=== PATIENT | male | born 1990 | race Caucasian/White ===

== ENCOUNTER 2024-04-04 19:05 | Emergency (ER) | payer BC, SELFPAY ==
--- NOTE | ~2024-04-04 | XR_ITS ---
XR chest 2V Ordering provider: Javier Bravo MD History: 33 years Male with . chest pain . Comparison: None. FINDINGS: MEDIASTINUM: The cardiac silhouette is not enlarged. LUNGS: No infiltrates, effusions or pneumothorax. OTHER: No free air under the diaphragm. IMPRESSION: No acute cardiopulmonary pathology. Nodule Reviewed, dictated and finalized at location A. ZINE KEEPER
--- NOTE | 2024-04-04 19:06 | ECG_ITS ---
Test Date: 2024-04-04 19:20:39 Measurements Intervals Gepp Rate: 60 P: -2 NV: 156 QRS: -20 QRSD: 105 T: -9 QT: 388 QTc: 390 Interpretive Statements SINUS RHYTHM No previous ECG available for comparison Electronically Signed On 04-05-2024 22:54:58 MATE FIRST by Cosmo Crump M.D.
[2024-04-04 19:21] VITALS: BP 101/65; PULSE 72; RESP 15; TEMP 36.6; O2SAT 100
[2024-04-04 19:33] LABS: Basophils Percent Auto 0.3 % (0.2-1.2); Eosinophils Absolute Auto 0.2 K/mm3 (0-0.3); Eosinophils Percent Auto 2.3 % (0-4.4); Hematocrit 46.8 % (42.0-52.0); Hemoglobin 16.3 g/dL (14.0-18.0); Immature Granulocyte Absolute 0.03 K/mm3 (0.00-0.031); Immature Granulocyte Percent A 0.4 % (0-0.5); Lymphocytes Absolute Auto 1.58 K/mm3 (0.9-3.2); Lymphocytes Percent Auto 22.3 % (18.3-44.2); Mean Corpuscular HGB Conc 34.8 g/dl (32-36); Mean Corpuscular Hemoglobin 30.3 pg (26-34); Mean Platelet Volume 9.5 fl (7.4-10.4); Monocytes Absolute Auto 0.6 K/mm3 (0.1-0.6); Monocytes Percent Auto 8.6 % (2.6-8.5); Neutrophils Absolute Auto 4.7 K/mm3 (1.3-6.7); Neutrophils Percent Auto 66.1 % (45.5-73.1); Platelet Count Result 221 k/mm3 (150-375); Red Blood Count 5.38 M/mm3 (4.6-6.20); Red Cell Distribution Width 12.5 % (11.5-14.5); White Blood Count 7.1 K/mm3 (4.5-10.0)
[2024-04-04 19:42] LABS: Alanine Aminotransferase 22 U/L (6-50); Alkaline Phosphatase 72 U/L (38-126); Anion Gap 6 mmol/L (4-12); Aspartate Amino Transferase 26 U/L (17-59); Bilirubin,Total 0.8 mg/dL (0.2-1.3); Blood Urea Nitrogen 19 mg/dL (9-20); Calcium 9.2 mg/dL (8.4-10.2); Carbon Dioxide 27 mmol/L (22-30); Chloride 106 mmol/L (98-107); Estimated CRCL calculation 98 ml/min; Estimated Glomerular Filt Rate > 60; Glucose 79 mg/dL (65-110); Lipase 148 U/L (23-300); Sodium 139 mmol/L (137-145)
[2024-04-04 19:53] LABS: Troponin I < 0.012 ng/mL (0.000-0.034)
[2024-04-04 20:02] LABS: Prothrombin Time 13.6 Seconds (11.1-14.7)
[2024-04-04 20:03] LABS: Partial Thromboplastin Time 28.2 Seconds (22.3-36.8)
[2024-04-04 20:09] LABS: Influenza A QL RT-PCR Negative (Negative); Influenza B QL RT-PCR Negative (Negative); RSV RNA, RT-PCR Negative (Negative); SARS-CoV-2 RNA PCR Negative (Negative)
--- NOTE | 2024-04-05 00:39 | PC.NURSE ---
pt seen ambulatory with steady gait to exit. no distress noted.
--- OUTSIDE RECORDS SUMMARY | 2024-04-12 02:19 | XMS_ITS | Continuity of Care Document ---
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 It does not include entries that were removed or entered in error. 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, 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, 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) Active Condition [facility] Syncope and collapse Active Condition [facility] Outpatient Physician Consultation Active Condition [facility] diarrhea Active Condition [facility] hemorrhoids Active Condition [facility] sinusitis Active Condition [facility] visit for: administrative purpose Inactive Condition [facility] other specified viral disease Inactive Condition [facility] visit for: follow-up exam Active Condition [facility] Medications Combined list of outpatient medications from Department of Defense and Veterans Affairs facilities.Medications provided include 1) outpatient medications from the last 15 months, and 2) patient-reported medications. Medication Details Route Status Patient Instructions Prescription Expires Prescription Number Last Dispense Date Ordering Provider Order Date Order Qty Source FLUARIX QUAD [id number] (influenza virus vaccine quadrival 4489-2443(6 mos and up)/PF), 60MCG/.5ML, FLUARIX QUAD 1 (influen za virus vaccine quadriva l 2019-(6 mos and up)/PF), 60MCG/.5 ML, Start Date: 05/12/20 Status: Ordered Ordered No Facilit y Access levothyroxi ne (Synthroid) 75 mcg tablet See dose instruct ions in comments , # 90 EA, 2 total refill(s ), Acute Complet ed 03/31/2023 90.0 [facility] y Allergies, Adverse Reactions, Alerts Combined list of allergies from Department of Defense and Veterans Affairs facilities. It does not include entries that were removed or entered in error. Substance Category Reaction Severity Reaction type Status Date Reported Comments Source No Known Allergies Drug allergy (disorder) active 07/31/2008 [place] [address] Immunizations Combined list of available immunizations from the Department of Defense and Veterans Affairs facilities. 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 Status Comments Source influenza virus vaccine, unspecified 2022 ELIDIA 88 comple t ed influenza virus vaccine, unspecifi ed 01/17/23 Recorded No Facilit y Access influenza, injectable, quadrivalent- pf 2021 ELIDIA [id number] 150 comple t ed Result Comment: Route: Unknown Manufactu rer: OTH (SKB) No Facilit y Access influenza virus vaccine, inactivated 2021 ELIDIA [id number] comple t ed Result Comment: Route: Unknown Manufactu rer: OTH (SEQ) No Facilit y Access COVID Vaccine Pfizer 2020 [id number] PFIZER complet ed COVID Vaccine Pfizer 09/18/20 Given Ambulat ory Pharmac y COVID Vaccine Pfizer 2020 [id number] PFIZER complet ed COVID Vaccine Pfizer 08/27/20 Given Ambulat ory Pharmac y influenza, seasonal, injectable 2020 [id number] 141 GlaxoSmithKli ne complet ed influenza , seasonal, injectabl e 05/11/20 Given Ambulat ory Pharmac y influenza, seasonal, injectable 2020 [id number] 141 GlaxoSmithKli ne complet ed influenza , seasonal, injectabl e 05/11/20 Given Ambulat ory Pharmac y Influenza, seasonal, injectable 1 2020 [id number] Influenza , seasonal, injectabl e DoD influenza, injectable, quadrivalent- pf 2020 TRS 150 GlaxoSmithKli ne complet ed influenza , injectabl e, quadrival ent-pf 05/10/20 Given Ambulat ory Pharmac y influenza, seasonal, injectable 2020 [id number] 141 GlaxoSmithKli ne complet ed influenza , seasonal, injectabl e 05/10/20 Given Ambulat ory Pharmac y influenza, injectable, quadrivalent- pf 2020 TRS 150 GlaxoSmithKli ne complet ed influenza , injectabl e, quadrival ent-pf 05/10/20 Given Ambulat ory Pharmac y influenza, seasonal, injectable 2020 [id number] 141 GlaxoSmithKli ne complet ed influenza , seasonal, injectabl e 05/10/20 Given Ambulat ory Pharmac y influenza, injectable, quadrivalent, preservative free 2020 ALUL, () Not Given influenza , injectabl e, quadrival ent, preservat ayesha free DoD Influenza, seasonal, injectable 1 2020 [id number] 141 Smithine ([employer] [facility]) complet ed Influenza , seasonal, injectabl e DoD Influenza, injectable, quadrivalent, preservative free 0 2020 Unknown, Provider [facility] complet ed Influenza , injectabl e, quadrival ent, preservat ayesha free DoD anthrax vaccine 0 2018 24 () Not Given anthrax vaccine DoD influenza, injectable, quadrivalent 2018 [id number] 158 Seqirus complet ed influenza , injectabl e, quadrival ent 01/08/19 Given Ambulat ory Pharmac y influenza, injectable, quadrivalent 2018 [id number] 20 158 Seqirus complet ed influenza , injectabl e, quadrival ent 01/08/19 Given Ambulat ory Pharmac y influenza, injectable, quadrivalent, contains preservative 12 2018 [id number] 20 158 Seqirus (SEQ) complet ed influenza , injectabl e, quadrival ent, contains preservat ayesha DoD typhoid Vi capsular polysaccharid e vac 2018 [id number] sanofi pasteur complet ed typhoid Vi capsular polysacch aride vac 12/11/18 Given Ambulat ory Pharmac y anthrax vaccine 2018 [id number] 24 Emergent [employer] complet ed anthrax vaccine 12/11/18 Given Ambulat ory Pharmac y typhoid Vi capsular polysaccharid e vac 2018 [id number] sanofi pasteur complet ed typhoid Vi capsular polysacch aride vac 12/11/18 Given Ambulat ory Pharmac y anthrax vaccine 2018 [id number] 24 [employer] complet ed anthrax vaccine 12/11/18 Given Ambulat ory Pharmac y anthrax vaccine 1 2018 [id number] 24 [facility] [employer] [place] ([facility]) complet ed anthrax vaccine DoD typhoid Vi capsular polysaccharid e vaccine 1 2018 [id number] 101 Sanofi Pasteur (PMC) complet ed typhoid Vi capsular polysacch aride vaccine DoD measles virus vaccine 0 2018 05 () Not Given measles virus vaccine DoD rubella virus vaccine 0 2018 06 () Not Given rubella virus vaccine DoD mumps virus vaccine 0 2018 07 () Not Given mumps virus vaccine DoD tetanus, diphtheria, acellular pertu is 2018 [id number] 115 sanofi pasteur complet ed tetanus, diphtheri a, acellular pertussis 08/07/18 Given Ambulat ory Pharmac y tetanus, diphtheria, acellular pertu is 2018 [id number] 115 sanofi pasteur complet ed tetanus, diphtheri a, acellular pertussis 08/07/18 Given Ambulat ory Pharmac y tetanus toxoid, reduced diphtheria toxoid, and acellular pertu is vaccine, adsorbed 2 2018 [id number] 115 Sanofi Pasteur (PMC) complet ed tetanus toxoid, reduced diphtheri a toxoid, and acellular pertussis vaccine, adsorbed DoD influenza, injectable, quadrivalent- pf 2017 [id number] 150 Seqirus complet ed influenza , injectabl e, quadrival ent-pf 03/13/18 Given Ambulat ory Pharmac y influenza, injectable, quadrivalent- pf 2017 [id number] 150 Seqirus complet ed influenza , injectabl e, quadrival ent-pf 03/13/18 Given Ambulat ory Pharmac y Influenza, injectable, quadrivalent, preservative free 1 2017 [id number] 150 Seqirus (SEQ) comple t ed Influenza , injectabl e, quadrival ent, preservat ayesha free DoD influenza virus vaccine, inactivated [id number] Seqirus complet ed influenza virus vaccine, inactivat ed 02/08/17 Given Ambulat ory Pharmac y influenza virus vaccine, inactivated [id number] 88 Seqirus complet ed influenza virus vaccine, inactivat ed 02/08/17 Given Ambulat ory Pharmac y Influenza, injectable, Madin Jodee Canine Kidney, quadrivalent with preservative 10 [id number] 186 Seqirus (SEQ) comple t ed Influenza , injectabl e, Madin [place] Canine Kidney, quadrival ent with preservat ayesha DoD influenza virus vaccine, inactivated 2016231 88 Seqirus complet ed influenza virus vaccine, inactivat ed 02/07/17 Given Ambulat ory Pharmac y influenza virus vaccine, inactivated 2016231 88 Seqirus complet ed influenza virus vaccine, inactivat ed 02/07/17 Given Ambulat ory Pharmac y Influenza, injectable, Madin Jodee Canine Kidney, quadrivalent with preservative 1 2016231 186 Seqirus (SEQ) comple t ed Influenza , injectabl e, Madin Jodee Canine Kidney, quadrival ent with preservat ayesha DoD influenza, seasonal, injectable-pf 2015 [id number] 140 Seqirus complet ed influenza , seasonal, injectabl e-pf 01/17/16 Given Ambulat ory Pharmac y influenza, seasonal, injectable-pf 2015 [id number] 140 Seqirus complet ed influenza , seasonal, injectabl e-pf 01/17/16 Given Ambulat ory Pharmac y Influenza, seasonal, injectable, preservative free 9 2015 [id number] 140 Seqirus (SEQ) comple t ed Influenza , seasonal, injectabl e, preservat ayesha free DoD meningococcal A,C,Y,W-135 (MCV4P) 2014 [id number] 114 sanofi pasteur complet ed meningoco ccal A,C,Y,W-1 35 (MCV4P) 01/31/15 Given Ambulat ory Pharmac y measles/mumps /rubella virus vaccine 2014 [id number] 03 Merck & Company Inc complet ed measles/m umps/rube lla virus vaccine 01/31/15 Given Ambulat ory Pharmac y meningococcal A,C,Y,W-135 (MCV4P) 2014 [id number] 114 sanofi pasteur complet ed meningoco ccal A,C,Y,W-1 35 (MCV4P) 01/31/15 Given Ambulat ory Pharmac y measles/mumps /rubella virus vaccine 2014 [id number] 03 Merck & Company Inc complet ed measles/m umps/rube lla virus vaccine 01/31/15 Given Ambulat ory Pharmac y measles, mumps and rubella virus vaccine 1 2014 [id number] 03 Merck (MSD) complet ed measles, mumps and rubella virus vaccine DoD meningococcal polysaccharid e (groups A, C, Y and W-135) diphtheria toxoid conjugate vaccine (MCV4P) 1 2014 [id number] 114 Sanofi Pasteur ([facility]) complet ed meningoco ccal polysacch aride (groups A, C, Y and W-135) diphtheri a toxoid conjugate vaccine (MCV4P) DoD varicella virus vaccine 0 2014 21 () Not Given varicella virus vaccine DoD hepatitis B vaccine, unspecified formulation 0 2014 45 () Not Given hepatitis B vaccine, unspecifi ed formulati on DoD hepatitis A vaccine, adult dosage 0 2014 52 () Not Given hepatitis A vaccine, adult dosage DoD influenza, seasonal, injectable-pf 2014 [id number] 140 CSL Behring complet ed influenza , seasonal, injectabl e-pf 01/06/15 Given Ambulat ory Pharmac y influenza, seasonal, injectable-pf 2014 [id number] 140 CSL Behring complet ed influenza , seasonal, injectabl e-pf 01/06/15 Given Ambulat ory Pharmac y Influenza, seasonal, injectable, preservative free 1 2014 [id number] 140 CS [employer]he[employer]ies, Inc. (CS) complet ed Influenza , seasonal, injectabl e, preservat ayesha free DoD influenza, seasonal, injectable 2013 [id number] 141 Novartis Pharmaceutica ls complet ed influenza , seasonal, injectabl e 01/07/14 Given Ambulat ory Pharmac y influenza, seasonal, injectable 2013 [id number] 141 Novartis Pharmaceutica ls complet ed influenza , seasonal, injectabl e 01/07/14 Given Ambulat ory Pharmac y Influenza, seasonal, injectable 1 2013 [id number] 141 Novartis Pharmaceutica l Delma. (NOV) complet ed Influenza , seasonal, injectabl e DoD influenza, seasonal, injectable-pf 2012 [id number] 140 sanofi pasteur complet ed influenza , seasonal, injectabl e-pf 10/15/13 Given Ambulat ory Pharmac y influenza, seasonal, injectable-pf 2012 [id number] 140 sanofi pasteur complet ed influenza , seasonal, injectabl e-pf 01/18/13 Given Ambulat ory Pharmac y Influenza, seasonal, injectable, preservative free 1 2012 [id number] 140 Sanofi Pasteur (PMC) complet ed Influenza , seasonal, injectabl e, preservat ayesha free DoD measles virus vaccine 0 2012 05 () Not Given measles virus vaccine DoD rubella virus vaccine 0 2012 06 () Not Given rubella virus vaccine DoD influenza virus vaccine, live 2011 [id number] 111 Medimmune Inc comple t ed influenza virus vaccine, live 01/17/12 Given Ambulat ory Pharmac y influenza virus vaccine, live 2011 [id number] 111 Medimmune Inc comple t ed influenza virus vaccine, live 01/17/12 Given Ambulat ory Pharmac y influenza virus vaccine, live, attenuated, for intranasal use 5 2011 [id number] 111 MedImmune, Inc. (MED) complet ed influenza virus vaccine, live, attenuate d, for intranasa l use DoD influenza virus vaccine, live 2010 [id number] 111 Medimmune Inc comple t ed influenza virus vaccine, live 01/03/11 Given Ambulat ory Pharmac y influenza virus vaccine, live, attenuated, for intranasal use 4 2010 [id number] 111 MedImmune, Inc. (MED) complet ed influenza virus vaccine, live, attenuate d, for intranasa l use DoD influenza virus vaccine, live 2009 [id number] 111 Medimmune Inc comple t ed influenza virus vaccine, live 02/09/10 Given Ambulat ory Pharmac y influenza virus vaccine, live 2009 [id number] 111 Medimmune Inc comple t ed influenza virus vaccine, live 02/09/10 Given Ambulat ory Pharmac y influenza virus vaccine, live, attenuated, for intranasal use 1 2009 [id number] 111 MedImmune, Inc. (MED) complet ed influenza virus vaccine, live, attenuate d, for intranasa l use [facility] Novel influenza-H1N 1-09,pf,injec table 2009 [id number] 1A 126 Novartis YoQueVostica complet ed Novel influenza -[id number], pf,inject able 04/15/09 Given Ambulat ory Pharmac y Novel influenza-H1N 1-09,pf,injec table 2009 [id number] 1A 126 Novartis Pharmaceutica ls complet ed Novel influenza -[id number], pf,inject able 04/15/09 Given Ambulat ory Pharmac y Novel influenza-H1N 1-09, preservative- free, injectable 1 2009 [id number] 1A 126 Novartis Pharmaceutica l Delma. (NOV) complet ed Novel influenza -[id number], preservat ayesha-free, injectabl e DoD hepatitis A adult vaccine 2008 [id number] 0AA 52 Merck & Company Inc complet ed hepatitis A adult vaccine 03/10/09 Given Ambulat ory Pharmac y hepatitis A adult vaccine 2008 [id number] 0AA 52 Merck & Company Inc complet ed hepatitis A adult vaccine 03/10/09 Given Ambulat ory Pharmac y hepatitis A vaccine, adult dosage 2 2008 [id number] 0AA 52 Merck (MSD) complet ed hepatitis A vaccine, adult dosage DoD influenza virus vaccine, live 2008 [id number] 111 Medimmune Inc comple t ed influenza virus vaccine, live 01/04/09 Given Ambulat ory Pharmac y influenza virus vaccine, live 2008 [id number] 111 Medimmune Inc comple t ed influenza virus vaccine, live 01/04/09 Given Ambulat ory Pharmac y influenza virus vaccine, live, attenuated, for intranasal use 1 2008 [id number] 111 [employer] (MED) complet ed influenza virus vaccine, live, attenuate d, for intranasa l use DoD hepatitis A adult vaccine 2008 [id number] 5AB 52 GlaxoSmithKli ne complet ed hepatitis A adult vaccine 06/14/08 Given Ambulat ory Pharmac y hepatitis A adult vaccine 2008 [id number] 5AB 52 GlaxoSmithKli ne complet ed hepatitis A adult vaccine 06/14/08 Given Ambulat ory Pharmac y measles, mumps and rubella virus vaccine 1 2008 03 () Not Given measles, mumps and rubella virus vaccine DoD varicella virus vaccine 1 2008 21 () Not Given varicella virus vaccine DoD hepatitis B vaccine, adult dosage 1 2008 43 () Not Given hepatitis B vaccine, adult dosage DoD hepatitis A vaccine, adult dosage 1 2008 [id number] 5AB 52 [facility] (SKB) complet ed hepatitis A vaccine, adult dosage DoD tuberculin purified protein derivative 2008 [id number] 96 sanofi pasteur complet ed tuberculi n purified protein derivativ e 06/11/08 Given Ambulat ory Pharmac y tetanus, diphtheria, acellular pertu is 2008 [id number] 1AB 115 GlaxoSmithKli ne complet ed tetanus, diphtheri a, acellular pertussis 06/08/08 Given Ambulat ory Pharmac y meningococcal A,C,Y,W-135 (MCV4P) 2008 [id number] 114 sanofi pasteur complet ed meningoco ccal A,C,Y,W-1 35 (MCV4P) 06/08/08 Given Ambulat ory Pharmac y influenza virus vaccine,split 2008 [id number] 1A 15 CSL Behring complet ed influenza virus vaccine,s plit 06/08/08 Given Ambulat ory Pharmac y poliovirus vaccine, inactivated 2008 [id number] 10 sanofi pasteur complet ed polioviru s vaccine, inactivat ed 06/08/08 Given Ambulat ory Pharmac y tetanus, diphtheria, acellular pertu is 2008 [id number] 1AB 115 GlaxoSmithKli ne complet ed tetanus, diphtheri a, acellular pertussis 06/08/08 Given Ambulat ory Pharmac y meningococcal A,C,Y,W-135 (MCV4P) 2008 [id number] 114 sanofi pasteur complet ed meningoco ccal A,C,Y,W-1 35 (MCV4P) 06/08/08 Given Ambulat ory Pharmac y influenza virus vaccine,split 2008 [id number] 1A 15 CSL Behring complet ed influenza virus vaccine,s plit 06/08/08 Given Ambulat ory Pharmac y poliovirus vaccine, inactivated 2008 [id number] 10 sanofi pasteur complet ed polioviru s vaccine, inactivat ed 06/08/08 Given Ambulat ory Pharmac y poliovirus vaccine, inactivated 1 2008 [id number] 10 Sanofi Pasteur (PMC) complet ed polioviru s vaccine, inactivat ed DoD influenza virus vaccine, split virus (incl. purified surface antigen)-reti red CODE 1 2008 [id number] 1A 15 [employer] Inc. (CSL) complet ed influenza virus vaccine, split virus (incl. purified surface antigen)- retired CODE DoD meningococcal polysaccharid e (groups A, C, Y and W-135) diphtheria toxoid conjugate vaccine (MCV4P) 1 2008 [id number] 114 Sanofi Pasteur (PMC) complet ed meningoco ccal polysacch aride (groups A, C, Y and W-135) diphtheri a toxoid conjugate vaccine (MCV4P) DoD tetanus toxoid, reduced diphtheria toxoid, and acellular pertu is vaccine, adsorbed 1 2008 [id number] 1AB 115 [employer] (SKB) complet ed tetanus toxoid, reduced diphtheri a toxoid, and acellular pertussis vaccine, adsorbed DoD Results Combined list of recent chemistry, hematology and other laboratory results from Department of Defense and Veterans Affairs, ranging from 15 months to all on record, depending upon the facility. Order Name Results Value Reference Range Date Interpretation Specimen Comments Source Chemistry eGFR CKD EPI 102 mL/min /1.73_ m2 01/01 Interpretiv e Data: Estimated Glomerular Filtration Rate (eGFR) calculated using the 2020 Chronic Kidney Disease-Epi demiology (CKD-EPI) Collaborati on creatinine equation; units of measure are mL/min/1.73 m2. Results are only valid for adults (>=18 years) whose serum creatinine is in steady state. eGFR calculation s are not valid for patients with acute kidney injury and for patients on dialysis. Creatinine- based estimates of kidney function may also be inaccurate in patients with reduced creatinine generation due to decreased muscle mass (e.g., malnutritio n, severe hypoalbumin emia, sarcopenia, chronic neuromuscul ar disease, amputations , severe heart failure or liver disease) and in patients with increased creatinine generation due to increased muscle mass (e.g., muscle builders, anabolic steroids) or increased dietary intake. CKD is diagnosed based on abnormaliti es of kidney structure or function, present for >3 months, with implication s for health and disease. CKD is classified and staged based on cause, eGFR and albuminuria (quantified as urine albumin to creatinine ratio). An eGFR >60 mL/min/1.73 m2 in the absence of increased urine albumin excretion or structural abnormaliti es does not CKD. eGFR provides only an estimate of measured GFR within +/- 30% for most patients. As mentioned, nutritional status and muscle mass, among many factors, may lead to inaccuracy in the estimate. Consider ordering the creatinine- cystatin C panel if better accuracy is needed for clinical decision-abraham lutz. eGFR (mL/min/1.7 3 m2) CKD stage Interpretat ion Normal 60-89 Mild decrease 45-59 Mild to moderate decrease 30-44 Moderate to severe decrease 15-29 Severe decrease <15 Kidney failure [facility] TSH 4.630 mIU/L 0.270 - 4.200 01/01 H Interpretiv e Data: Recommend: TPO/Thyrope roxidase Antibody when TSH result is > 4.2 uIU/mL [facility] Protein Total 8.1 g/dL 6.4 - 8.3 01/01 N [facility] Sodium 141 mmol/L 136 - 145 01/01 N [facility] Potassium Lvl 4.0 mmol/L 3.5 - 5.1 01/01 N [facility] Glucose Lvl 82 mg/dL 74 - 99 01/01 N [facility] Creatinine Level 1.00 mg/dL 0.72 - 1.25 01/01 N [facility] CO2 27 mmol/L 22 - 29 01/01 N [facility] Chloride 105 mmol/L 98 - 107 01/01 N [facility] Calcium 9.7 mg/dL 8.4 - 10.2 01/01 N [facility] BUN/Creat Ratio 15 mg/dL 12 - 20 01/01 N [facility] BUN 15 mg/dL 8 - 26 01/01 [facility] Bilirubin Total 0.6 mg/dL 0.2 - 1.2 01/01 [facility] AST 22 U/L 5 - 34 01/01 [facility] ALT 17 U/L 5 - 55 01/01 [facility] Alk Phos 66 U/L 40 - 150 01/01 N [facility] Albumin 4.80 g/dL 3.50 - 5.20 01/01 N [facility] AGAP 9.00 0.00 - 15.00 01/01 N [facility] T3 Total 0.95 ng/mL 0.80 - 2.00 01/01 N Interpretiv e Data: METHODOLOGY : Testing performed by electrochem iluminescen t immunoassay (ECLIA). [facility] Chemistry T4 Free Direct.LC 1.34 ng/dL 01/01 Result Comment: Performed At: [address] [id number] Morelia Patel PhD Ph:[phone] [facility] Vital Signs Combined list of inpatient and outpatient Vital Signs from Department of Defense and Veterans Affairs, ranging from 12 months to all on record, depending upon the facility. Vital Sign Value Date Comments Source No data available for this section Amb[facility] Pharmacy Encounters Combined list of: 1) Encounters from Department of Veterans Affairs facilities going back up to thelast 18 months. 2) Encounters from the Department of Defense facilities going back up to 280 months. Location Location Details Encounter Type Encounter Number Reason For Visit Attending Provider ADM Date DC Date Status Disposition [place] [address]([facility]) OUTPATIENT [id number] JOHNNA JOSE D L 07/31 Released w/o Limitations [facility] [place] [address]([facility]) [address] [place] [address] Group Carlos NARAYANAN ([facility] [place] TELE CONSULT [id number] Notes Entered by: KEN ROMAN 08 Jun 2012 0856 ------- ------- ------- ------- -- Request keysha sanchez/ ANIKA WASHINGTON 06/08 Referred [facility] Appointment [facility] Carlos NARAYANAN ([facility]S cott [facility] [place]) [address] [place] [address] Carlos NARAYANAN ([facility]co [place] [facility] [place]) OUTPATIENT [id number] congest ion, sore throat x one week RYAN VERAS 06/09 Released w/o Limitations [address] [place] [address] Carlos [facility] [facility] [place] [address] [place] [address] Carlos [facility])(Sco tt [facility] [place]) TELE CONSULT [id number] Notes Entered by: KEN ROMAN 26 Aug 2012 1552 ------- ------- ------- ------- -- Alicia sanchez/ YARIEL BRODY 08/[address] [place] [address] Carlos [facility])(S cott [facility] [place]) [address] [place] [address] Carlos [facility])(Sco tt [facility] [place] OUTPATIENT [id number] pain/di scomfor t possibl e hemorrh oids CHUN MORALES 08/27 Released w/o Limitations [address] [place] [address] Carlos [facility]S [facility] [place] [address] [place] [address] [facility] tt [facility] Res Tm Green) OUTPATIENT [id number] f/u checkup [id number] CHUN MORALES 09/23 Released w/o Limitations [address] [place] [address] [facility])(S cott [facility] Res Tm Green) [address] [place] [address] [facility])([facility] TELE CONSULT [id number] Notes Entered by: BRETT CERON 19 Oct 2012 0922 ------- ------- ------- ------- -- Network Results - GASTROE NTEROLO RONNIE 10/12/12 YONI IVERSON 10/[address] [place] [address] [facility])(S cott [facility] Tm Blue) [address] [place] [address])(Sco tt [facility] Res Tm Green) TELE CONSULT [id number] Notes Entered by: MARIE 22 Oct 2012 1507 ------- ------- ------- ------- -- O & P stool sample geoffe YARIEL Jean 10/22 [facility] ([facility]S cott [facility] Res Tm Green) [address] [place] [address] Group [facility])(Sco tt [facility] Res Tm Green) TELE CONSULT [id number] Notes Entered by: Aristeo MALHOTRA 09 May 2014 0829 ------- ------- ------- ------- -- Sx nausea, fever,b benjamin aches,c hills,s ore throat* /Moulto [phone] ZAKI MATUTE 05/[address] [place] [address] Group Carlos [facility] ([facility])([facility] Res Tm Green) [employer](Bio environme ntal Eng Prev Med) OUTPATIENT [id number] Notes Entered by: HAWA HOUSE 19 Feb 2015 1516 ------- ------- ------- ------- -- referen ce hearing screeni [place] HOUSE 02/19 Released w/o Limitations [employer](B ioenvir onmenta l Eng Prev Med) [place] [address](AFN G 183 Med Sq-FM) OUTPATIENT [id number] Notes Entered by: Whit LEWIS 29 Sep 2017 1543 ------- ------- ------- ------- -- TRI [facility] JESUSITA LEWIS 09/29 Released w/o Limitations [facility] [place] [address](A FNG 183 Med Sq-FM) [place] [address](AFN G 183 Med Sq-FM) OUTPATIENT [id number] JESSICA VERAS 12/15 Released w/o Limitations [facility] [place] [address](A FNG 183 Med Sq-FM) [address] [place] [address] Group Carlos [facility] ([facility])(Meo tt [facility] Res Tm Green) OUTPATIENT [id number] new pt; set up care - Rx renewal GINNA TAYLOR 12/24 Released w/o Limitations [facility] Carlos [facility] ([facility])(S [facility] F[facility] Res Tm Green) Theater Facility OUTPATIENT [id number] Theater Provider 05/24 Released w/o Limitations [facility] OUTPATIENT [id number] Theater Provider 09/12 Sick at Home/Quarter s Theater [facility] Facility OUTPATIENT [id number] Theater Provider 09/21 Released w/o Limitations [facility] OUTPATIENT [id number] Theater Provider 10/05 Released w/o Limitations Theater Facilit y [facility])(War rior Op Med Cln Tm A Ad) TELE CONSULT [id number] Notes Entered by: GIDEON JEWELL 27 Oct [id number] ------- ------- ------- ------- -- Bridge Rx - Salvador z - -= SOHAN Ron 10/26 Medication Refill Forwarded [facility] Carlos [facility]W arrior Op Med Cln Tm A Ad) [address] [place] [address] [facility])(War rior Op Med Cln Tm A Ad) OUTPATIENT [id number] VIRTUAL [phone] F/U thyroid ANTONELLA WAGNER 11/03 Released w/o Limitations [facility])(W arrior Op Med Cln Tm A Ad) [facility])(War rior Op Med Cln Tm A Ad) TELE CONSULT [id number] Notes Entered by: ANTONELLA DUNNE 10 Nov [id number] ------- ------- ------- ------- -- lab results ARELIS MUNOZ 11/09 Released to Self Care [facility]W arrior Op Med Cln Tm A Ad) [facility])(War rior Op Med Cln Tm A Ad) TELE CONSULT [id number] Notes Entered by: ZAHRA LEACHLA SANJUANA 05 Dec 2019 1032 ------- ------- ------- ------- -- Prescri ption Refill NORIS AGUILAR 12/04 Released to Self Care [address] [place] [address])(W arrior Op Med Cln Tm A Ad) [address] [place] [address])(War rior Op Med Cln Tm A Ad) TELE CONSULT [id number] Notes Entered by: AGATHA GLASS 06 Dec 2019 1000 ------- ------- ------- ------- -- VERO Gonzalez Team 1 NORIS AGUILAR 12/05 Other Not Elsewhere Classified [address] [place] [address])(W arrior Op Med Cln Tm [place]) [place] [address](AFN G 183 Med Sq-FM) OUTPATIENT [id number] Notes Entered by: JESSICA VERAS 26 Dec 2019 1344 ------- ------- ------- ------- -- PHA JESSICA VERAS 12/25 Released w/o Limitations [facility] [place] [address](A FNG 183 Med Sq-FM) [address] [place] [address])(Fam low Med Tm B Non-AD BCC) TELE CONSULT [id number] Notes Entered by: YOLANDA SHAH 28 May 2020 1037 ------- ------- ------- ------- -- VERO Secure Msg/RX refill/ YOLANDA Jhaveri 05/28 Medication Refill Forwarded [address] [place] [address] [facility])(F amily Med Tm B Non-AD BCC) [address] [place] [address])(Meo tt [facility] ) TELE CONSULT [id number] Notes Entered by: ZULMA FONSECA 24 Mar 2022 1001 ------- ------- ------- ------- -- Secure Messagi ng - Med Refill JANICE GAUTHIER 03/24 Medication Refill Forwarded [address] [place] [address])(S [facility] Flight Medicin e Tm) [address] [place] [address])([facility] Flight Medicine ) TELE CONSULT [id number] Notes Entered by: TRUNG DOS SANTOS 28 Apr 2022 1240 ------- ------- ------- ------- -- SX Tinglin g, Rash, on Lips and Inner Cheeks/ Bashir/ JACQUELYN RICHARD 04/28 Referred- Emergency Department [address] [place] [address])([facility] Flight Medicin e Tm) [address] [place] [address])(War rior Op Med Cln Tm A Ad) OUTPATIENT [id number] Rash on face ZULAY YANNA Tony S 04/29 Released w/o Limitations [address] [place] [address])(W arrior Op Med Cln Tm A Ad) Procedures Combined list of: 1) Procedures from Department of Veterans Affairs facilities going back up to thelast 18 months, not all VA non-surgical procedures are included; 2) All procedures from the Department of Defense facilities. Procedure Procedure Type Code Date Perfomer Comments Sourc e No data available for this section Ambulatory Pharmacy Threshold Audiogram (Pure Tone) Threshold Audiogram (Pure Tone) [id number] 02/20/2015 [facility]SE [facility] Testing Audiometry Group Testing [id number] 02/20/2015 [facility] Non-Physician Phone Call To Patient/Provider Brief (5-10min) Non-Physician Phone Call To Patient/Provider Brief (5-10min) [id number] 05/09/2014 ZAKI MATUTE [facility] Non-Physician Phone Call To Patient/Provider Brief (5-10min) Non-Physician Phone Call To Patient/Provider Brief (5-10min) [id number] 06/08/2012 ANIKA WASHINGTON DoD Pulse Oximetry Pulse Oximetry [id number] 07/31/2008 JOSE D TOLEDO DoD Waiver services; not otherwise specified (NOS) ANTONELLA WAGNER DoD Non-Physician Phone Call To Patient/Provider Brief (5-10min) Non-Physician Phone Call To Patient/Provider Brief (5-10min) [id number] AGATHA GLASS [facility] Non-Physician Phone Call To Pt/Provider Lengthy (21-30 min) Non-Physician Phone Call To Pt/Provider Lengthy (21-30 min) [id number] JACQUELYN RICHARD DoD PURE TONE AUDIOMETRY (THRESHOLD); AIR ONLY 02/19/2015 DoD TELE ASSESS & MGT SRV PROV QUAL NONPHYS HLTH CARE PRO TO EST PAT,PARENT,GUARD NOT ORIG REL ASSESS & MGT SRV PROV W/IN PREV 7 DAYS NOR LEAD ASSESS & MGT SRV/PX W/IN NXT 24H/SOON APT; 21-30 MIN MED DIS 04/28/2022 DoD TELE ASSESS & MGT SRV PROV QUAL NONPHYS HLTH CARE PRO TO EST PAT,PARENT,GUARD NOT ORIG REL ASSESS & MGT SRV PROV W/IN PREV 7 DAYS NOR LEAD ASSESS & MGT SRV/PX W/IN NXT 24 HR/SOON APT;5-10 MIN MED DIS 05/28/2020 DoD TELE ASSESS & MGT SRV PROV QUAL NONPHYS HLTH CARE PRO TO EST PAT,PARENT,GUARD NOT ORIG REL ASSESS & MGT SRV PROV W/IN PREV 7 DAYS NOR LEAD ASSESS & MGT SRV/PX W/IN NXT 24 HR/SOON APT;5-10 MIN MED DIS 12/06/2019 DoD WAIVER SERVICES; NOT OTHERWISE SPECIFIED (NOS) 11/07/2019 DoD TELE ASSESS & MGT SRV PROV QUAL NONPHYS HLTH CARE PRO TO EST PAT,PARENT,GUARD NOT ORIG REL ASSESS & MGT SRV PROV W/IN PREV 7 DAYS NOR LEAD ASSESS & MGT SRV/PX W/IN NXT 24 HR/SOON APT;5-10 MIN MED DIS 05/09/2014 DoD TELE ASSESS & MGT SRV PROV QUAL NONPHYS HLTH CARE PRO TO EST PAT,PARENT,GUARD NOT ORIG REL ASSESS & MGT SRV PROV W/IN PREV 7 DAYS NOR LEAD ASSESS & MGT SRV/PX W/IN NXT 24 HR/SOON APT;5-10 MIN MED DIS 06/08/2012 DoD Social History Combined list of available smoking, tobacco, and other social history from Department of Defense and Veterans Affairs facilities. Social History Type Response Date Comment Sour e This section is an empty social history section. DoD Assessment and Plan Combined list of future care activities from Department of Defense and Veterans Affairs facilities (e.g., assessment and plan notes, appointments, orders, and referrals). Additional future care activities may be listed in the Plan of Care section. Result Assessment and Plan Date Source Assessment and Plan No data available for this section 04/12/2024 Ambulatory Pharmacy Functional Status Combined list of recent functional and cognitive assessments recorded at Department of Defense and Veterans Affairs (PR).VA Functional Caribou Measurement (FIM) Scale: 1 = Total Assistance (Subject = 0% +), 2 = Maximal Assistance (Subject = 25% +), 3 = Moderate Assistance (Subject = 50% +), 4 = Minimal Assistance (Subject = 75% +), 5 = Supervision, 6 = Modified Caribou (Device), 7 = Complete Caribou (Timely, Safely). Assessment Date/Time Source Assessment Type Assessment Skill Assessment Score Assessment Details No data available for this section
--- OUTSIDE RECORDS SUMMARY | 2024-04-12 02:20 | XMS_ITS | Referral Summary ---
Author Organization [facility] Physician Office Building [address] [place] [id number] Care Team Providers Care Buildings And Grounds Coordinator Name Role Phone Tlyor Berg MD Primary Care Provider + [phone] Allergies Active Allergy Reactions Criticality Noted Date Comments Nickel Rash Medium 05/19/2023 Cefixime Rash Medium 05/19/2023 Medications finasteride (PROPECIA) 1 mg tablet Take 1 tablet (1 mg total) by mouth daily 30 tablet 11 05/19/2023 5 Active levothyroxine (SYNTHROID) 88 mcg tablet Take 1 tablet (88 mcg total) by mouth daily 90 tablet 2 08/03/2023 5 Active Active Problems Problem Noted Date Diagnosed Date 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 Left thyroid nodule, without suspicious features and FNAed a few years ago Repeat ultrasound in 5 years Erectile dysfunction 05/19/2023 Assessment & Plan (05/19/2023 10:31 AM MEDICAL ASSISTANT INTERNAL MEDICINE): Patient has ordered Viagra I advised him to start using it and if he finds that is helpful, we can prescribe generic she will then Alopecia 05/19/2023 Assessment & Plan (05/19/2023 10:31 AM MEDICAL ASSISTANT INTERNAL MEDICINE): Will start finasteride Social History Tobacco Use Types Packs/Day Years Used Date Smoking Tobacco: Never Tobacco Cessation:Counseling Given: Not Answered Personal Safety Answer Date Recorded Getting School Help Needed Not on file 05/18 Sex and Gender Information Value Date Recorded Sex Assigned at Not on file Legal Sex Male 2:18 PM MEDICAL ASSISTANT INTERNAL MEDICINE Gender Identity Not on file Sexual Orientation Not on file Last Filed Vital Signs Vital Sign Reading Time Taken Comments Blood Pressure 120/70 05/19/2023 9:00 AM MEDICAL ASSISTANT INTERNAL MEDICINE Pulse 89 05/19/2023 9:00 AM MEDICAL ASSISTANT INTERNAL MEDICINE Temperature - - Respiratory Rate 18 05/19/2023 9:00 AM MEDICAL ASSISTANT INTERNAL MEDICINE Oxygen Saturation - - Inhaled Oxygen Concentration - - Weight 87.4 kg (192 lb 9.6 oz) 05/19/2023 9:00 A M MEDICAL ASSISTANT INTERNAL MEDICINE Height 180.3 cm (5' 11 ) 05/19/2023 9:00 AM MEDICAL ASSISTANT INTERNAL MEDICINE Body Mass Index 26.86 05/19/2023 9:00 AM MEDICAL ASSISTANT INTERNAL MEDICINE Plan of Treatment Not on file Insurance [employer] OOS Care Teams Buildings And Grounds Coordinator Relationship Specialty Start Date End Date Tylor Berg MD PCP - General Family Medicine 05/18/23
--- OUTSIDE RECORDS SUMMARY | 2024-04-12 02:20 | XMS_ITS | Clinical Summary ---
Author Organization [facility] Physician Office Building [address] [place] [id number] Care Team Providers Care Marshmallow Machine Operator Name Role Phone Tylor Berg MD Primary Care Provider + [phone] Allergies Active Allergy Reactions Criticality Noted Date [...] 05/19/2023 Assessment & Plan (05/19/2023 10:30 AM POWER WHEELCHAIR MECHANIC): I explained to the patient that the goal of treatment is to keep TSH within normal range Increase levothyroxine from 75 to 88 mcg daily Repeat TFTs in 3 3 months Thyroid ultrasound done today. 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 Social History Tobacco Use Types Packs/Day Years Used Date Smoking Tobacco: Never Tobacco Cessation:Counseling Given: Not Answered Personal Safety Answer Date Recorded Getting School Help Needed Not on file 05/18 Sex and Gender Information Value Date Recorded Sex Assigned at Not on file Legal Sex Male 2:18 PM POWER WHEELCHAIR MECHANIC Gender Identity Not on file Sexual Orientation Not on file Obstetrics History Last Filed Vital Signs Vital Sign Reading Time Taken Comments Blood Pressure 120/70 05/19/2023 9:00 AM POWER WHEELCHAIR MECHANIC Pulse 89 05/19/2023 9:00 AM POWER WHEELCHAIR MECHANIC Temperature - - Respiratory Rate 18 05/19/2023 9:00 AM POWER WHEELCHAIR MECHANIC Oxygen Saturation - - Inhaled Oxygen Concentration - - Weight 87.4 kg (192 lb 9.6 oz) 05/19/2023 9:00 A M POWER WHEELCHAIR MECHANIC Height 180.3 cm (5' 11 ) 05/19/2023 9:00 AM POWER WHEELCHAIR MECHANIC Body Mass Index 26.86 05/19/2023 9:00 AM POWER WHEELCHAIR MECHANIC Plan of Treatment Health Maintenance Due Date Last Done Comments Depression Screening 1989 Hepatitis C Screening 1989 Hepatitis B Screening 2007 Regular Well Visit/Exam 18-64 2007 Varicella Vaccines (1 of 2 - 13+ 2-dose series) 02/14/2012 Covid-19 Vaccine ( - season) 2023 09/18/2020, 08/27/2020 Influenza Vaccine (#1) 2023 3, 03/08/2022, 04/12/2021, Additional history exists DTaP/Tdap/Td Vaccine (3 - Td or Tdap) 08/07/2028 08/07/2018, 06/08/2008 HPV Vaccines Aged Out No longer eligi ble based on patient's age to complete this topic Pneumococcal vaccine <65 Aged Out No longer eligible based on patient's age to complete this topic Insurance [facility] OOS Care Teams Marshmallow Machine Operator Relationship Specialty Start Date End Date Tylor Berg MD PCP - General Family Medicine 05/18/23
--- OUTSIDE RECORDS SUMMARY | 2024-04-12 02:20 | XMS_ITS | Encounter Summary ---
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 05/18/2023 Encounter Details Date Type Department Care Team (Late st Contact Info) Description 05/18/2023 [facility]phone [facility] [address] [facility] [address] [place] [phone] [place] [id number] [place] [address] [address], [place] [id number] CARPET INSTALLER HELPER Records Request ENDO Social History Tobacco Use Types Packs/Day Years Used Date Smoking Tobacco: Never Assessed Personal Safety Answer Date Recorded Getting School Help Needed Not on file 05/18 Sex and Gender Information Value Date Recorded Sex Assigned at Not on file Legal Sex Male 2:18 PM DISABILITIES SERVICES OFFICER Gender Identity Not on file Sexual Orientation Not on file documented as of this encounter Miscellaneous Notes * Telephone Encounter - Roberto Ariza - 05/18/2023 2:44 PM CST I sent via [employer] to PCP office requesting records for the appt with FR tomorrow in the [place] Office. I scanned labs from [facility] into the chart. BILITIES SERVICES OFFICER documented in this encounter Plan of Treatment Not on file documented as of this encounter Visit Diagnoses Not on filedocumented in this encounter Care Teams Civilian Technician Relationship Specialty Start Date End Date Tylor Berg MD PCP - General Family Medicine 05/18/23 documented as of this encounter
--- OUTSIDE RECORDS SUMMARY | 2024-04-12 02:20 | XMS_ITS | Encounter Summary ---
Author Organization [facility] Healthcare Address [address] [place] [address] Care Team Providers Care Director Product Name Role Phone Tylor Berg MD Primary Care Provider + [phone] Reason for Visit * Reason Onset Date Comments Appointment 10/07/2023 Encounter Details Date Type Department Care Team (Late st Contact Info) Description 10/07/2023 [facility]phone [facility] [address] [facility] [address] [place] [phone] [place] Gonsales [place] [id number] [place] [address] [address] [address] Appointment Social History Tobacco Use Types Packs/Day Years Used Date Smoking Tobacco: Never Personal Safety Answer Date Recorded Getting School Help Needed Not on file 05/18 Sex and Gender Information Value Date Recorded Sex Assigned at Not on file Legal Sex Male 2:18 PM CRIME INVESTIGATOR SPECIAL AGENT Gender Identity Not on file Sexual Orientation Not on file documented as of this encounter Miscellaneous Notes * Telephone Encounter - Vivien Cortes - 10/07/2023 2:37 PM CDT LMVM and sent a [employer] messge making the patient aware of the appt in 11/19/2023 with FR Rescheduled with DS on 01/25/2024 at 2:00 pm mailed an appt reminder. documented in this encounter Plan of Treatment Not on file documented as of this encounter Visit Diagnoses Not on filedocumented in this encounter Care Teams Director Product Relationship Specialty Start Date End Date Tylor Berg MD PCP - General Family Medicine 05/18/23 documented as of this encounter
--- OUTSIDE RECORDS SUMMARY | 2024-04-12 02:20 | XMS_ITS | Encounter Summary ---
Author Organization [facility] Healthcare Address [address] [place] [address] Care Team Providers Care Zoning Assistant Name Role Phone Tylor Berg MD Primary Care Provider + [phone] Reason for Visit * Reason Comments Erica's Thyroiditis Encounter Details Date Type Department Care Team (Late st Contact Info) Description 05/19/2023 9:00 AM PHARMACY INTAKE COORDINATOR Office Visit [facility] Diabetes and Endocrinology [address] [place] [phone] [place] [address] [facility] [address] [place] [address] Erica's disease (Primary Dx); Erectile dysfunction, unspecified erectile dysfunction type; Alopecia Social History Tobacco Use Types Packs/Day Years Used Date Smoking Tobacco: Never Tobacco Cessation:Counseling Given: Not Answered Personal Safety Answer Date Recorded Getting School Help Needed Not on file 05/18 Sex and Gender Information Value Date Recorded Sex Assigned at Not on file Legal Sex Male 2:18 PM PHARMACY INTAKE COORDINATOR Gender Identity Not on file Sexual Orientation Not on file documented as of this encounter Last Filed Vital Signs Vital Sign Reading Time Taken Comments Blood Pressure 120/70 05/19/2023 9:00 AM PHARMACY INTAKE COORDINATOR Pulse 89 05/19/2023 9:00 AM PHARMACY INTAKE COORDINATOR Temperature - - Respiratory Rate 18 05/19/2023 9:00 AM PHARMACY INTAKE COORDINATOR Oxygen Saturation - - Inhaled Oxygen Concentration - - Weight 87.4 kg (192 lb 9.6 oz) 05/19/2023 9:00 A M PHARMACY INTAKE COORDINATOR Height 180.3 cm (5' 11 ) 05/19/2023 9:00 AM PHARMACY INTAKE COORDINATOR Body Mass Index 26.86 05/19/2023 9:00 AM PHARMACY INTAKE COORDINATOR documented in this encounter Patient Instructions * Patient Instructions* Kelly Gonsales MD - 05/19/2023 9:00 AM PHARMACY INTAKE COORDINATOR Increase Levothyroxine to 88 mcg daily Repeat labs in 3 months. MACY INTAKE COORDINATOR documented in this encounter Ordered Prescriptions Prescription Sig Dispense Quantity Refills Last Filled Start Date End Date finasteride (PROPECIA) 1 mg tablet Take 1 tablet (1 mg total) by mouth daily 30 tablet 11 05/19/2023 05/18/2024 levothyroxine (SYNTHROID) 88 mcg tablet Take 1 tablet (88 mcg total) by mouth daily 90 tablet 2 05/19/2023 08/03/2023 documented in this encounter Progress Notes * Kelly Gonsales MD - 05/19/2023 9:00 AM CST Images from the original note were not included. Subjective/Objective Patient ID: Bandar Huang is a 33 y.o. male. Chief Complaint Erica's Thyroiditis HPI Consult requested by Dr. Berg for Erica's Mr. Huang tells me that he was diagnosed with Erica's thyroiditis about 7 years ago. At that time he had noticed some swelling of the left side of the thyroid area. He recalls having an FNA biopsy of a thyroid nodule reported as benign. He has been on L T4 replacement therapy with 75 mcg daily. The patient overall feels fine with some nonspecific symptoms . . He is complaining of some decreased libido, ED and losing her. He has been over 10 years. The they have 2 kids age 3 and 6. Both he and his work full-time. He mentions some stressors at work He has some some decreased libido, some problems with ED, 2 kids, 3 and 6. Getting exercise only 1 x wk. Review of Systems Constitutional: Negative for activity change and fatigue. HENT: Negative for congestion, hearing loss, trouble swallowing and voice change. Eyes: Negative for redness and visual disturbance. Respiratory: Negative for apnea, cough and chest tightness. Cardiovascular: Negative for chest pain, palpitations and leg swelling. Gastrointestinal: Negative for abdominal distention, abdominal pain, constipation, diarrhea and nausea. Endocrine: Negative for cold intolerance, heat intolerance, polydipsia, polyphagia and polyuria. ED Genitourinary: Negative for difficulty urinating, frequency and urgency. Musculoskeletal: Negative for arthralgias, back pain, gait problem and neck pain. Skin: Negative for color change. Hair loss Allergic/Immunologic: Negative for food allergies. Neurological: Negative for dizziness, tremors, syncope, weakness, light- headedness and headaches. Hematological: Negative for adenopathy. Psychiatric/Behavioral: Positive for sleep disturbance. The patient is not nervous/anxious. Physical Exam Constitutional: Appearance: He is well-developed. Comments: Well-built male , with normal facial hair HENT: Head: Normocephalic and atraumatic. Eyes: Conjunctiva/sclera: Conjunctivae normal. Pupils: Pupils are equal, round, and reactive to light. Neck: Thyroid: No thyroid mass or thyromegaly. Trachea: Trachea and phonation normal. Cardiovascular: Rate and Rhythm: Normal rate and regular rhythm. Heart sounds: Normal heart sounds. No murmur heard. Pulmonary: Effort: Pulmonary effort is normal. Breath sounds: Normal breath sounds. Abdominal: General: There is no distension. Palpations: Abdomen is soft. Musculoskeletal: General: Normal range of motion. Skin: General: Skin is warm. Neurological: Mental Status: He is alert and oriented to person, place, and time. Motor: Motor function is intact. Psychiatric: Behavior: Behavior normal. 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 Left thyroid nodule, without suspicious features and FNAed a few years ago Repeat ultrasound in 5 years Orders: - TSH; Future - Thyroid peroxidase antibody (TPO); Future - T4, free; Future Erectile dysfunction, unspecified erectile dysfunction type (N52.9) Assessment & Plan: Patient has ordered Viagra I advised him to start using it and if he finds that is helpful, we can prescribe generic she will then Alopecia (L65.9) Assessment & Plan: Will start finasteride Other orders - levothyroxine (SYNTHROID) 88 mcg tablet; Take 1 tablet (88 mcg total) by mouth daily - finasteride (PROPECIA) 1 mg tablet; Take 1 tablet (1 mg total) by mouth daily MACY INTAKE COORDINATOR documented in this encounter Procedure Notes * Kelly Gonsales MD - 05/19/2023 9:00 AM CST Procedures Thyroid ultrasound report: Ultrasound of the thyroid was performed with longitudinal and transverse imaging. Color Doppler imaging was utilized. The thyroid gland is very inhomogeneous The right lobe measures 2.07 x 1.69 x 4.5 cm The isthmus measures 0.28 cm in thickness The left lobe measures 1.86 x 1.69 x 4.17 cm This is a isoechoic, oval nodule in the left upper lobe, towards the isthmus side. It measures 0.61x 1.44 x 1.35 cm Color doppler decreased vascularity Impression: Sonographic appearance of Erica's thyroiditis. Left thyroid nodule as described above without suspicious features MACY INTAKE COORDINATOR documented in this encounter Miscellaneous Notes * Assessment & Plan Note - Kelly Gonsales MD - 05/19/2023 10:31 AM CSTAssociated Problem(s): Alopecia Will start finasteride MACY INTAKE COORDINATOR * Assessment & Plan Note - Kelly Gonsales MD - 05/19/2023 10:31 AM CSTAssociated Problem(s): Erectile dysfunction Patient has ordered Viagra I advised him to start using it and if he finds that is helpful, we can prescribe generic she will then MACY INTAKE COORDINATOR * Assessment & Plan Note - Kelly Gonsales MD - 05/19/2023 10:30 AM CSTAssociated Problem(s): Erica's disease I explained to the patient that the goal of treatment is to keep TSH within normal range Increase levothyroxine from 75 to 88 mcg daily Repeat TFTs in 3 3 months Thyroid ultrasound done today. Left thyroid nodule, without suspicious features and FNAed a few years ago Repeat ultrasound in 5 years MACY INTAKE COORDINATOR documented in this encounter Plan of Treatment Scheduled Orders Name Type Priority Associated Diagnoses Orde r Schedule TSH Lab Routine Erica's disease Expected: 08/17/2023, Expires: 05/19/2024 Thyroid peroxidase antibody (TPO) Lab Routine Erica's disease Expected: 08/17/2023, Expires: 05/19/2024 T4, free Lab Routine Erica's disease Expected: 08/17/2023, Expires: 05/19/2024 documented as of this encounter Visit Diagnoses Diagnosis Erica's disease- Primary Chronic lymphocytic thyroiditis Erectile dysfunction, unspecified erectile dysfunction type Alopecia documented in this encounter Discontinued Medications Medication Sig Discontinue Reason Start Date End Da te levothyroxine (SYNTHROID) 75 mcg tablet 04/07/1905/19/2023 documented as of this encounter Historical Medications * This list may reflect changes made after this encounter. Medication Sig Dispense Quantity Refills Last Filled Start D ate End Date levothyroxine (SYNTHROID) 75 mcg tablet 04/07/2023 05/19/2023 added in this encounter Care Teams Zoning Assistant Relationship Specialty Start Date End Date Tylor Berg MD PCP - General Family Medicine 05/18/23 documented as of this encounter
== END 2024-04-05 01:07 | disposition left against medical advice (07) ==
LOC: ANHED 04-05 01:02
PROVIDERS: Emergency Medicine; Emergency Provider Emergency Medicine; PCP Family Medicine
DX: R07.9 Chest pain, unspecified (principal)
CPT/HCPCS: 36415; 71046; 80053; 83690; 84484; 85025; 85610; 85730; 87637; 93005; 99199

== ENCOUNTER 2025-01-02 01:18 | Day surgery (SDC) | payer BC, SELFPAY ==
[2024-12-20 08:40] VITALS: BMI 25.1
--- OUTSIDE RECORDS SUMMARY | 2025-01-02 01:23 | XMS_ITS | Clinical Summary ---
Author Organization [facility] [address] [place] [id number] Care Team Providers Care Class C Truck Driver Name Role Phone Tylor Berg MD Primary Care Provider + [phone] Allergies Active Allergy Reactions Criticality Noted Date Comments Nickel Rash Medium 05/19/2023 Cefixime Rash Medium 05/19/2023 Medications finasteride (PROPECIA) 1 mg tablet Take 1 tablet (1 mg total) by mouth daily 30 tablet 11 05/19/2023 Active levothyroxine (SYNTHROID) 88 mcg tablet Take 1 tablet (88 mcg total) by mouth daily 90 tablet 2 08/03/2023 Active Active Problems Problem Noted Date Diagnosed Date Erica's disease 05/19/2023 Assessment & Plan (05/19/2023 10:30 AM FINANCE DIRECTOR): I explained to the patient that the goal of treatment is to keep TSH within normal range Increase levothyroxine from 75 to 88 mcg daily Repeat TFTs in 3 3 months Thyroid ultrasound done today. Left thyroid nodule, without suspicious features and FNAed a few years ago Repeat ultrasound in 5 years Erectile dysfunction 05/19/2023 Assessment & Plan (05/19/2023 10:31 AM FINANCE DIRECTOR): Patient has ordered Viagra I advised him to start using it and if he finds that is helpful, we can prescribe generic she will then Alopecia 05/19/2023 Assessment & Plan (05/19/2023 10:31 AM FINANCE DIRECTOR): Will start finasteride Medical History Medical History Date Comments Erica's disease 05/19/2023 Social History Tobacco Use Types Packs/Day Years Used Date Smoking Tobacco: Never Tobacco Cessation:Counseling Given: Not Answered Personal Safety Answer Date Recorded Getting School Help Needed Not on file 05/18 Sex and Gender Information Value Date Recorded Sex Assigned at Not on file Legal Sex Male 2:18 PM FINANCE DIRECTOR Gender Identity Not on file Sexual Orientation Not on file Obstetrics History Last Filed Vital Signs Vital Sign Reading Time Taken Comments Blood Pressure 120/70 05/19/2023 9:00 AM FINANCE DIRECTOR Pulse 89 05/19/2023 9:00 AM FINANCE DIRECTOR Temperature - - Respiratory Rate 18 05/19/2023 9:00 AM FINANCE DIRECTOR Oxygen Saturation - - Inhaled Oxygen Concentration - - Weight 87.4 kg (192 lb 9.6 oz) 05/19/2023 9:00 A M FINANCE DIRECTOR Height 180.3 cm (5' 11) 05/19/2023 9:00 AM FINANCE DIRECTOR Body Mass Index 26.86 05/19/2023 9:00 AM FINANCE DIRECTOR Plan of Treatment Health Maintenance Due Date Last Done Comments Depression Screening 1989 Hepatitis C Screening 1989 Varicella Vaccines (1 of 2 - 13+ 2-dose series) 2002 Hepatitis B Screening 2007 Regular Well Visit/Exam 18-64 2007 HPV Vaccines (1 - 3-dose SCDM series) 2016 Covid-19 Vaccine ( - season) 2024 09/18/2020, 08/27/2020 Influenza Vaccine (#1) 2024 , 03/08/2022, 04/12/2021, Additional history exists DTaP/Tdap/Td Vaccine (3 - Td or Tdap) 08/07/2028 08/07/2018, 06/08/2008 Pneumococcal vaccine <65 Aged Out No longer eligible based on patient's age to complete this topic Insurance [employer] Care Teams Class C Truck Driver Relationship Specialty Start Date End Date Tylor Berg MD PCP - General Family Medicine 05/18/23
[2025-01-02 11:45] VITALS: BP 94/77; PULSE 78; RESP 18; TEMP 36.6; O2SAT 100
[2025-01-02] MEDS: LACTATED RINGERS 1,000 ML 150 ML IV CONT ×2 (11:54→12:48)
--- NOTE | 2025-01-02 12:02 | P.PNAN_ITS ---
Anes - Initial Pre Proc Eval Procedure: Operation Date: 01/02/25 13:00 Proposed Procedures p Diagnostic Colonoscopy - Branden Pepper MD Date/Time: 01/02/25 12:02 Surgeon: Branden Pepper MD Pre Op Diagnosis: change in bowel habits/constipation Patient Data Age: 34 Gender: M Height: 1.8 m Weight: 80.4 kg Last Vital Signs Temp 97.9 F 01/02/25 11:45 Pulse 78 01/02/25 11:45 Resp 18 01/02/25 11:45 BP 94/77 L 01/02/25 11:45 Pulse Ox 100 01/02/25 11:45 O2 Del Method Room Air 01/02/25 11:45 Allergies Allergy/AdvReac Type Severity Reaction Status Date / Time cefixime Allergy Unknown Unknown Verified 12/20/24 08:40 nickel Allergy Unknown Unknown Verified 12/20/24 08:40 Home Medications ?Medication ?Instructions ?Recorded ?Confirmed ?Type linaclotide 72 mcg capsule 72 mcg PO DAILY #30 caps 01/02/25 Rx (Linzess) levothyroxine 88 mcg capsule 88 mcg PO DAILY #30 caps 12/22/24 01/02/25 Rx Patient hx anesthesia problems: none Family hx anesthesia problems: none Results Review: All pre-operative results and documents have been reviewed as part of the pre- operative evaluation. [facility] Past Medical History Medical History Right shoulder pain BMI 25.0-25.9,adult Erica's thyroiditis Decreased libido Change in stool Screening for lipid disorders Family History Family History Father No problems noted. Mother Thyroid activity decreased Sibling No problems noted. 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 Hypothyroidism, active w workouts, no cp or sob. Informed Consent: The patient's anesthetic plan and its attendant risks and benefits were discussed with the patient/family/POA. Questions were solicited and answers provided to the satisfaction of the patient/family/POA.
--- NOTE | 2025-01-02 12:39 | PM.IMHP ---
H&P: HPI History of Present Illness Date/Time: 01/02/25 12:39 Chief Complaint: Change in bowel habits Narrative: this patient is referred for colonoscopy due to the irregularity in his bowel habits. Of note, he has a history of his Hirshprung's disease many years ago and is currently dealing with moderate to severe constipation. Review of Systems Review of Systems: All systems reviewed & are unremarkable except as noted in HPI and below PMFSH Past Medical History Medical History Right shoulder pain BMI 25.0-25.9,adult Erica's thyroiditis Decreased libido Change in stool Screening for lipid disorders Family History Family History Father No problems noted. Mother Thyroid activity decreased Sibling No problems noted. 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[employer] Gender identity (if verbalized by the patient): Male Spiritual care concerns: No Meds Home Medications and Allergies Home Medications ?Medication ?Instructions ?Recorded ?Confirmed ?Type linaclotide 72 mcg capsule 72 mcg PO DAILY #30 caps 11/21/24 01/02/25 Rx (Linzess) levothyroxine 88 mcg capsule 88 mcg PO DAILY #30 caps 12/22/24 01/02/25 Rx Allergies Allergy/AdvReac Type Severity Reaction Status Date / Time cefixime Allergy Unknown Unknown Verified 12/20/24 08:40 nickel Allergy Unknown Unknown Verified 12/20/24 08:40 Vital Signs Vital Signs - 24 hr 01/02/25 11:45 Temperature 97.9 F Pulse Rate 78 Respiratory Rate 18 Blood Pressure 94/77 L Pulse Oximetry 100 Oxygen Delivery Room Air Exam Const: General: cooperative and healthy appearing Resp: Effort & Inspection: normal respiratory effort and able to speak in complete sentences Auscultation: clear to auscultation bilaterally Cardio: Rate: regular rate Rhythm: regular rhythm GI: Inspection: normal to inspection GI Palp: No No hepatosplenomegaly present Auscultation: normal bowel sounds Rectal Exam: deferred Skin: General skin exam: normal color Psych: Appearance: grossly normal Mental Status: mental status grossly normal Assessment and Plan Assessment and plan (1) Change in stool: Code(s): R19.5 - Other fecal abnormalities Status: Acute Assessment and Plan: The patient is deemed a good candidate for the procedure. Consent signed. Will proceed.
[2025-01-02] MEDS: SIMETHICONE ORAL SUSPENSION 20 MG/0.3 ML 30 ML BOTTLE 0.6 ML IRRIGATION (12:54)
[2025-01-02 13:05] VITALS: BP 92/53; PULSE 61; RESP 17; O2SAT 99
[2025-01-02 13:15] VITALS: BP 97/60; PULSE 53; RESP 18; O2SAT 99
[2025-01-02 13:25] VITALS: BP 98/58; PULSE 60; RESP 18; O2SAT 100
== END 2025-01-02 13:40 | disposition home or self-care (01) ==
PROVIDERS: PCP Family Medicine; Referring Provider Nurse Practitioner; Visit Provider Internal Medicine Gastroenterology
PROC: 0DJD8ZZ Inspection of Lower Intestinal Tract, Via Natural or Artificial Opening Endoscopic (ICD-10-PCS; CPT 45378; principal; 2025-01-02 13:00)
DX: R19.5 Other fecal abnormalities (principal); E06.3 Autoimmune thyroiditis; Z87.891 Personal history of nicotine dependence
CPT/HCPCS: 45378; J2003; J2704; J7120